=== PATIENT | male | born 1970 | race Caucasian/White ===

== ENCOUNTER 2021-02-26 14:56 | Emergency (ER) | payer BC, OTHER ==
[~2021-02-26] VITALS: Ht 182.8 cm; Wt 91.0 kg
[~2021-02-26 14:56] MED LIST: ASPI1TAB22 PO; CEPH500C PO; IBUP200C PO; NAPR220T29 PO; OXYC-199 PO
[2021-02-26] MEDS ORDERED: LABETALOL HCL 20 MG/4 ML VIAL IV ONE (16:30)
[2021-02-26 16:44] LABS: BASOPHILS # (AUTO) 0.1 10^3/uL (0.0-0.1); BASOPHILS % (AUTO) 1 % (0-10); EOSINOPHILS # (AUTO) 0.2 10^3/uL (0.0-0.3); EOSINOPHILS % (AUTO) 3 % (0-10); HEMATOCRIT 45 % (40-54); HEMOGLOBIN 15.6 g/dL (13.3-17.7); LYMPHOCYTES # (AUTO) 1.8 10^3/uL (1.0-4.0); LYMPHOCYTES % (AUTO) 21 % (12-44); MEAN CORPUSCULAR HEMOGLOBIN 31 pg (25-34); MEAN CORPUSCULAR HGB CONC 35 g/dL (32-36); MEAN CORPUSCULAR VOLUME 89 fL (80-99); MEAN PLATELET VOLUME 9.9 fL (9.0-12.2); MONOCYTES # (AUTO) 0.8 10^3/uL (0.0-1.0); MONOCYTES % (AUTO) 10 % (0-12); NEUTROPHILS # (AUTO) 5.3 10^3/uL (1.8-7.8); NEUTROPHILS % (AUTO) 65 % (42-75); PLATELET COUNT 253 10^3/uL (130-400); WHITE BLOOD COUNT 8.2 10^3/uL (4.3-11.0)
[2021-02-26 16:48] LABS: ALBUMIN 4.3 GM/DL (3.2-4.5)
[2021-02-26 16:49] LABS: CHLORIDE 102 MMOL/L (98-107); POTASSIUM 4.3 MMOL/L (3.6-5.0); SODIUM 140 MMOL/L (135-145)
[2021-02-26 16:51] LABS: GLUCOSE 89 MG/DL (70-105); TOTAL PROTEIN 7.3 GM/DL (6.4-8.2)
[2021-02-26 16:52] LABS: CARBON DIOXIDE 28 MMOL/L (21-32)
[2021-02-26 16:54] LABS: ALKALINE PHOSPHATASE 110 U/L (40-136)
[2021-02-26 16:55] LABS: CREATININE SERUM 0.85 MG/DL (0.60-1.30); GFR ESTIMATED 95
[2021-02-26 16:56] LABS: BUN/CREATININE RATIO 15
[2021-02-26] MEDS ORDERED: lisINopril 10 MG (PRINIVIL) TABLET ONE (16:56)
[2021-02-26 16:58] LABS: ALANINE AMINOTRANSFERASE 20 U/L (0-55)
[2021-02-26] MEDS ORDERED: lisINopril 20 MG (PRINIVIL) TABLET PO ONE (17:00)
--- NOTE | 2021-02-26 17:01 | ED Cardiac General ---
History of Present Illness General Chief Complaint: Cardiac/General Problems Stated Complaint: HIGH BP Nursing Triage Note: PATIENT HAS BEEN RECIEVING TREATMENT FOR HIS TEETH AT A LOCAL DENTIST AND WAS TOLD HIS BP WAS HIGH. PATIENT THEN RETOOK PRESSURE AT [facility] AND IT WAS 210/120. ALSO C/O DECREASED VISION ACUITY AND INTERMITTENT CONFUSION. HOWEVER PATIENT IS GOOD HISTORIAN AND ANSWERS QUESTIONS APPROPRIATLY. SPOUSE IN ROOM. CALL LIGHT IN REACH. Source: patient Exam Limitations: no limitations History of Present Illness Date Seen by Provider: Feb 26, 2021 Time Seen by Provider: 16:05 Initial Comments Patient ER by private conveyance from urgent care [facility] with chief complaint that he went to the dentist for some dental work and they noted his blood pressure to be elevated 200/100. Since that time 3 days ago he has been checking it has been running 180s in the morning systolic. He does not have a primary care doctor. He went to [facility] urgent care to get it addressed and they said they could not evaluate him or treat him appropriately so they sent him here. Is not having any chest pain shortness of air nausea vomiting diarrhea. No history of strokes or heart attack. No neurologic symptoms. No swelling in his hands or feet. No orthopnea or cough or fever. He says last time he had his blood pressure checked was in 2018 and it was normal then. He is not having a history of diabetes hyperlipidemia. He has no significant family history of heart disease hypertension diabetes etc. Quit smoking 3 days ago. Has a history of DVT in his leg from 7 years ago. Allergies and Home Medications Allergies Coded Allergies: No Known Drug Allergies (Unverified , 03/13/14) Home Medications Aspirin/Acetaminophen/Caffeine 1 Tab Tablet, 1 TAB PO Q12H PRN for MIGRAINE, (Reported) Cephalexin Monohydrate 500 Mg Capsule, 1 EACH PO TID Prescribed by: RODO SHEPPARD on 03/15/14 1112 Ibuprofen 200 Mg Capsule, 400 MG PO Q6H PRN for PAIN, (Reported) take (2) 200 MG TABLETS Lisinopril 20 Mg Tablet, 20 MG PO DAILY Prescribed by: DWAYNE BARRERA on 02/26/21 1746 Naproxen Sodium 220 Mg Tablet, 440 MG PO Q6H PRN for MODERATE PAIN, (Reported) TAKE (2) 220 MG TABLETS Oxycodone Hcl/Acetaminophen 1 Tab Tablet, 1-2 TAB PO Q6H Prescribed by: RODO SHEPPARD on 03/15/14 1112 Patient Home Medication List Home Medication List Reviewed: Yes Review of Systems Review of Systems Constitutional: No chills, No diaphoresis EENTM: No Blurred Vision, No Double Vision Respiratory: Denies Cough, Denies Shortness of Air Cardiovascular: Denies Chest Pain, Denies Lightheadedness Gastrointestinal: Denies Constipated, Denies Diarrhea, Denies Nausea Genitourinary: Denies Burning, Denies Discharge, Denies Drainage Musculoskeletal: No back pain, No joint pain All Other Systems Reviewed Negative Unless Noted: Yes Past Bmydxff-Bvqunq-Azqjmc Hx Patient Social History Tobacco Use?: Yes Tobacco type used: Cigarettes Smoking Status: Former Smoker Smokeless Tobacco Frequency: Former User Use of E-Cig and/or Vaping dev: No Substance use?: No Alcohol Use?: No Pt feels they are or have been: No Immunizations Up To Date Tetanus Booster (TDap): More than 5yrs PED Vaccines UTD: Yes Influenza Vaccine Up-to-Date: No; Not Current First/Initial COVID19 Vaccinat: JANUARY 2021 Second COVID19 Vaccination Moisés: FEBRUARY 26 2021 Past Medical History Reproductive Disorders: No Adverse Reaction/Blood Tranf: No Family Medical History Arthritis 19 MOTHER Neoplasm No Family History of: AIDS Abdominal aortic aneurysm Miles's disease Alcoholism Alzheimer's disease Aphasia Asthma Cancer of mouth Cardiovascular disease Cataracts Colon cancer Congenital disease Congenital heart disease Coronary thrombosis Cystic fibrosis Deafness or hearing loss Dementia Diabetes mellitus Drug abuse Dysphasia Fibrocystic disease of breast Gastroenteritis Glaucoma Headache disorder Hypercholesterolemia Hypertension Infertility Kidney disease Myocardial infarction Not obtainable due to adoption Osteoporosis Parkinson's disease Prostate cancer Psychosocial problem Respiratory disorder Seizure disorder Severe allergy Thyroid disease Tuberculosis Visual disorder Physical Exam Vital Signs Vital Signs - First Documented 02/26/21 16:05 Temp 37.0 Pulse 53 Resp 18 B/P (MAP) 231/129 (163) Pulse Ox 100 Capillary Refill : Less Than 3 Seconds Height, Weight, BMI Height: 6'0.00" Weight: 244lbs. oz. 110.331332ag; 27.00 BMI Method: General Appearance: No Apparent Distress, WD/WN HEENT: PERRL/EOMI, TMs Normal, Pharynx Normal, Moist Mucous Membranes Neck: Full Range of Motion, Normal Inspection Respiratory: Lungs Clear, Normal Breath Sounds, No Accessory Muscle Use, No Respiratory Distress Cardiovascular: Regular Rate, Rhythm, No Edema, Normal Peripheral Pulses Gastrointestinal: Normal Bowel Sounds, Non Tender, Soft Extremity: Normal Capillary Refill, Normal Inspection, No Pedal Edema Neurologic/Psychiatric: Alert, Oriented x3 Skin: Normal Color, Warm/Dry Progress/Results/Core Measures Results/Orders Lab Results Laboratory Tests Test 02/26/21 16:20 Range/Units White Blood Count 8.2 4.3-11.0 10^3/uL Red Blood Count 5.04 4.30-5.52 10^6/uL Hemoglobin 15.6 13.3-17.7 g/dL Hematocrit 45 40-54 % Mean Corpuscular Volume 89 80-99 fL Mean Corpuscular Hemoglobin 31 25-34 pg Mean Corpuscular Hemoglobin Concent 35 32-36 g/dL Red Cell Distribution Width 12.2 10.0-14.5 % Platelet Count 253 130-400 10^3/uL Mean Platelet Volume 9.9 9.0-12.2 fL Immature Granulocyte % (Auto) 0 % Neutrophils (%) (Auto) 65 42-75 % Lymphocytes (%) (Auto) 21 12-44 % Monocytes (%) (Auto) 10 0-12 % Eosinophils (%) (Auto) 3 0-10 % Basophils (%) (Auto) 1 0-10 % Neutrophils # (Auto) 5.3 1.8-7.8 10^3/uL Lymphocytes # (Auto) 1.8 1.0-4.0 10^3/uL Monocytes # (Auto) 0.8 0.0-1.0 10^3/uL Eosinophils # (Auto) 0.2 0.0-0.3 10^3/uL Basophils # (Auto) 0.1 0.0-0.1 10^3/uL Immature Granulocyte # (Auto) 0.0 0.0-0.1 10^3/uL Sodium Level 140 135-145 MMOL/L Potassium Level 4.3 3.6-5.0 MMOL/L Chloride Level 102 98-107 MMOL/L Carbon Dioxide Level 28 21-32 MMOL/L Anion Gap 10 5-14 MMOL/L Blood Urea Nitrogen 13 7-18 MG/DL Creatinine 0.85 0.60-1.30 MG/DL Estimat Glomerular Filtration Rate 95 BUN/Creatinine Ratio 15 Glucose Level 89 70-105 MG/DL Calcium Level 9.0 8.5-10.1 MG/DL Corrected Calcium 8.8 8.5-10.1 MG/DL Total Bilirubin 1.0 0.1-1.0 MG/DL Aspartate Amino Transf (AST/SGOT) 19 5-34 U/L Alanine Aminotransferase (ALT/SGPT) 20 0-55 U/L Alkaline Phosphatase 110 40-136 U/L Troponin I < 0.028 <0.028 NG/ML C-Reactive Protein High Sensitivity 1.05 H 0.00-0.50 MG/DL Total Protein 7.3 6.4-8.2 GM/DL Albumin 4.3 3.2-4.5 GM/DL My Orders Orders - DWAYNE BARRERA Cbc With Automated Diff (02/26/21 16:29) Comprehensive Metabolic Panel (02/26/21 16:29) Hs C Reactive Protein (02/26/21 16:29) Chest 1 View, Ap/Pa Only (02/26/21 16:29) Continuous Ekg Monitoring (02/26/21 16:29) Ekg Tracing (02/26/21 16:29) Troponin I (02/26/21 16:29) Labetalol Injection (Normodyne Injection (02/26/21 16:30) Lisinopril Tablet (Zestril Tablet) (02/26/21 17:00) Lisinopril Tablet (Zestril Tablet) (02/26/21 16:56) Medications Given in ED Current Medications Medications Dose Ordered Sig/Tony Route Start Time Stop Time Status Last Admin Dose Admin Labetalol HCl 20 mg ONCE ONCE IV 02/26/21 16:30 02/26/21 16:31 DC 02/26/21 16:36 20 MG Lisinopril 20 mg ONCE ONCE PO 02/26/21 17:00 02/26/21 17:01 DC 02/26/21 16:58 20 MG Vital Signs/I&O 02/26/21 02/26/21 16:05 17:53 Temp 37.0 Pulse 53 47 Resp 18 14 B/P (MAP) 231/129 (163) 176/97 Pulse Ox 100 100 Blood Pressure Mean: 163 Progress Progress Note : Time: 16:58 Progress Note EKG unremarkable. Plan to check some basic labs and have him follow-up with a primary care doctor. he does have LVH likely consistent with his history of HTN. Gave him some labetalol. It made his heart rate come down in the 50s. Will also start him on lisinopril 20 mg and give him some good education and return precautions. Patient is in agreement the plan. Initial ECG Impression Date: Feb 26, 2021 Initial ECG Impression Time: 16:17 Initial ECG Rate: 51 Initial ECG Rhythm: Normal Sinus Initial ECG Intervals: Normal Initial ECG Impression: Normal, Nonspecific Changes Initial ECG Comparisson: No Previous ECG Available Comment No clinically relevant ST changes. The referenced half block of ST elevation and anterior lateral leads also correlates with a descending baseline and is the refore artifactual. Diagnostic Imaging Diagonstic Imaging: Xray Plain Films/CT/US/NM/MRI: chest Comments [facility] [place], [place] NAME: [facility] REC#: [id number] PT STATUS: REG ER : 1970 PHYSICIAN: DWAYNE BARRERA MD ADMIT DATE: 02/26/21/ER Signed Date of Exam:02/26/21 CHEST 1 VIEW, AP/PA ONLY EXAMINATION: Chest 1 view HISTORY: Hypertension. COMPARISON: None available. FINDINGS: Heart size is mildly enlarged. Pulmonary vasculature is normal. There are mild interstitial opacities in the lung bases. No pleural effusion or pneumothorax. The osseous structures are intact. IMPRESSION: 1. Mild interstitial opacities in the lung bases with borderline cardiomegaly. Findings could be seen with pulmonary edema, atelectasis, or atypical infection. Dictated by: Dictated on workstation # [id number] Dict: 02/26/211709 Trans: 02/26/211717 AS6 [id number] Interpreted by: TERRIE VICK DO Electronically signed by: TERRIE VICK DO 02/26/211717 Reviewed: Reviewed by Me Departure Impression Primary Impression: HTN (hypertension) Qualified Codes: I10 - Essential (primary) hypertension Disposition: 01 HOME, SELF-CARE Condition: Stable Departure-Patient Inst. Decision time for Depature: 17:45 Patient Instructions: LOCAL PHYSICIAN LIST, High Blood Pressure (DC) Add. Discharge Instructions: Lisinopril 1 tablet daily until you get in with your primary care doctor in the next 1 to 2 weeks. Return to the ER promptly if you are having chest pain or shortness of air or other worrisome symptoms. 3 times a week when you first get up from sleeping check your blood pressure while you are still well rested. Write this down to take it with you to your first appointment. All discharge instructions reviewed with patient and/or family. Voiced understanding. Scripts Lisinopril (Lisinopril) 20 Mg Tablet 20 MG PO DAILY for 30 Days, #30 TAB 0 Refills Prov: DWAYNE BARRERA 02/26/21 Copy Copies To 1: MARY ALVA DO DWAYNE BARRERA Feb 26, 2021 17:01
--- NOTE | 2021-02-26 17:13 | Diagnostic Imaging Report ---
EXAMINATION: Chest 1 view HISTORY: Hypertension. COMPARISON: None available. FINDINGS: Heart size is mildly enlarged. Pulmonary vasculature is normal. There are mild interstitial opacities in the lung bases. No pleural effusion or pneumothorax. The osseous structures are intact. IMPRESSION: 1. Mild interstitial opacities in the lung bases with borderline cardiomegaly. Findings could be seen with pulmonary edema, atelectasis, or atypical infection. Dictated by: Dictated on workstation # [id number]
[2021-02-26] MEDS ORDERED: LISI20TA26 PO (17:46)
[2021-02-26 17:53] VITALS: BP 176/97
== END 2021-02-26 17:55 | disposition home or self-care (01) ==
LOC: EDUNIT# 14:56 → ER 14:57
DX: I10 Essential (primary) hypertension (principal); Z87.891 Personal history of nicotine dependence; Z79.82 Long term (current) use of aspirin
CPT/HCPCS: 36415; 71045; 80053; 84484; 85025; 86141; 93005; 96374

== ENCOUNTER → 2022-07-20 | Outpatient (CLI) | payer BC, OTHER ==
[~2022-07-20] MED LIST changes: +LISI20TA26 PO
--- NOTE | 2022-07-20 11:35 | Diagnostic Imaging Report ---
PROCEDURE: US left lower extremity venous. TECHNIQUE: Multiple Real-time grayscale images were obtained over the left lower extremity in various projections. Additional duplex Doppler and color Doppler images were also obtained. INDICATION: Left lower extremity edema. FINDINGS: The left lower extremity deep venous system shows normal compressibility with normal response to augmentation and Valsalva. There does appear to be thrombus within superficial veins in the medial calf, consistent with superficial thrombophlebitis. No fluid collections are seen. IMPRESSION: 1. No evidence of left lower extremity DVT. 2. Findings consistent with superficial thrombophlebitis. Dictated by: Dictated on workstation # [id number]
== END ==
LOC: RAD 10:05
PROVIDERS: ATTEND Nurse Practitioner Family
DX: I83.892 Varicose veins of left lower extremity with other complications (principal); I82.812 Embolism and thrombosis of superficial veins of left lower extremity; R22.42 Localized swelling, mass and lump, left lower limb